=== PATIENT | male | born 1960 | race Caucasian/White ===

== ENCOUNTER → 2017-07-12 | Outpatient (CLI) | payer OTHER | END | disposition home or self-care (01) | LOC: PCVCIMAG 12:40 | DX: I10 Essential (primary) hypertension (principal); R42 Dizziness and giddiness; R06.00 Dyspnea, unspecified; R55 Syncope and collapse; R53.83 Other fatigue; E78.5 Hyperlipidemia, unspecified | CPT/HCPCS: 93325; 93351 ==